=== PATIENT | female | born 1940 | race Caucasian/White ===

== ENCOUNTER 2020-12-22 09:44 | Emergency (ER) | payer BC, MEDICARE ==
--- NOTE | 2020-12-22 10:53 | EDM.PDOC ---
ED HPI GENERAL MEDICAL PROBLEM - General Stated Complaint: TROUBLE BREATHING / CHOKING Time Seen by Provider: 12/22/20 10:40 Source of Information: Reports: Patient, Family History Limitations: Reports: No Limitations - History of Present Illness INITIAL COMMENTS - FREE TEXT/NARRATIVE: This 79 yo female patient was brought to the ED by family due to increased shortness of breath. The patient reports her shortness of breath started on December 09, but has gotten much worse today. The patient reports she lives in [place] and flew to [place] arriving on December 09. The patient denies any history of lung disease. The patient has not taken any medications for temporary symptom relief. The patient reports no previous similar episodes. The patient's daughters report that the patient has had increased shortness of breath with exertion. The patient did fall 2 days ago while in the yard, but reports no injuries due to the fall. Duration: Day(s):, Getting Worse Location: Reports: Chest Quality: Reports: Other Severity: Moderate Improves with: Reports: Rest Worsens with: Reports: Movement Associated Symptoms: Reports: Cough, Shortness of Breath - Related Data Allergies Allergy/AdvReac Type Severity Reaction Status Date / Time No Known Allergies Allergy Verified 12/22/20 10:33 Home Meds: Home Meds Multivit-Min/FA/Lutein/Zeaxant [Macular Vitamin Tablet] 1 each PO DAILY 12/22/20 [History] Simvastatin [Zocor] 20 mg PO DAILY 12/22/20 [History] lisinopriL [Lisinopril] 20 mg PO DAILY 12/22/20 [History] ED ROS GENERAL - Review of Systems Review Of Systems: Comprehensive ROS is negative, except as noted in HPI. ED EXAM, GENERAL - Physical Exam Exam: See Below Exam Limited By: No Limitations General Appearance: Alert, WD/WN, Moderate Distress, Thin Eye Exam: Bilateral Eye: EOMI, Normal Inspection, PERRL Ears: Normal External Exam, Normal Canal, Hearing Grossly Normal, Normal TMs Nose: Normal Inspection, Normal Mucosa, No Blood Throat/Mouth: Normal Inspection, Normal Lips, Normal Teeth, Normal Gums, Normal Oropharynx, Normal Voice, No Airway Compromise Head: Atraumatic, Normocephalic Neck: Normal Inspection, Supple, Non-Tender, Full Range of Motion Respiratory/Chest: Decreased Breath Sounds (bilateral lower lobes), Rhonchi Cardiovascular: Tachycardia GI/Abdominal: Normal Bowel Sounds, Soft, Non-Tender, No Organomegaly, No D istention, No Abnormal Bruit, No Mass (Female) Exam: Deferred Rectal (Female) Exam: Deferred Back Exam: Normal Inspection, Full Range of Motion, NT Extremities: Normal Inspection, Normal Range of Motion, Non-Tender, Normal Capillary Refill Neurological: Alert, Oriented, CN II-XII Intact, Normal Cognition, Normal Gait, Normal Reflexes, No Motor/Sensory Deficits Psychiatric: Normal Affect, Normal Mood Skin Exam: Warm, Dry, Intact, Normal Color, No Rash Lymphatic: No Adenopathy #1 Interpretation EKG Date: 12/22/20 Time: 10:19 Rhythm: Other (Atrial fibrillation with RVR) [place]: Normal P-Wave: Present QRS: Normal ST-T: Normal QT: Normal Comparison: NA - No Prior EKG Course - Vital Signs Last Recorded V/S: Last Vital Signs Temp 97.2 F 12/22/20 10:17 Pulse 102 H 12/22/20 10:17 Resp 28 H 12/22/20 10:17 BP 168/103 H 12/22/20 10:17 Pulse Ox 91 L 12/22/20 10:17 - Orders/Labs/Meds Orders: Active Orders 24 hr Category Date Time Status EKG Documentation Completion [RC] STAT Care 12/22/20 10:29 Active Diltiazem 125 MG in NS @ 5 MG/HR(100ml) Med 12/22/20 11:30 Ordered Diltiazem 125 mg Sodium Chloride 0.9% [Normal Saline] 100 ml IV TITRATE Medication Orders Diltiazem HCl 125 mg/ Sodium (Chloride) 125 mls @ 5 mls/hr IV TITRATE ROSANGELA Last Admin: 12/22/20 11:48 Dose: 5 mg/hr, 5 mls/hr Documented by: SEAN Labs: Laboratory Tests 12/22/20 12/22/20 12/22/20 Range/Units 10:20 10:24 10:24 WBC 11.8 H (5.0-10.0) 10^3/uL RBC 4.50 (4.2-5.4) 10^6/uL Hgb 14.4 (12.0-16.0) g/dL Hct 43.9 (37.0-47.0) % MCV 97.6 (80-100) fL MCH 32.0 (27.0-34.0) pg MCHC 32.8 L (33.0-35.0) g/dL Plt Count 265 (150-450) 10^3/uL Neut % (Auto) 88.0 H (42.2-75.2) % Lymph % (Auto) 3.9 L (20.5-50.1) % [place] % (Auto) 7.9 (2-8) % Eos % (Auto) 0.0 L (1.0-3.0) % Baso % (Auto) 0.2 (0.0-1.0) % D-Dimer, Quantitative 2210 H (0-400) ng/mL Sodium (136-145) mmol/L Potassium (3.5-5.1) mmol/L Chloride (98-107) mmol/L Carbon Dioxide (21-32) mmol/L Anion Gap (7-13) mEq/L BUN (7-18) mg/dL Creatinine (0.55-1.02) mg/dL Est Cr Clr Drug Dosing mL/min Estimated GFR (MDRD) BUN/Creatinine Ratio (No establ ref range) Glucose (70-99) mg/dL Calcium (8.5-10.1) mg/dL Total Bilirubin (0.2-1.0) mg/dL AST (15-37) U/L ALT (14-59) U/L Alkaline Phosphatase (46-116) U/L Troponin I High Sens (<=51) pg/mL B-Natriuretic Peptide (0-100) pg/ml Total Protein (6.4-8.2) g/dL Albumin (3.4-5.0) g/dL Globulin Albumin/Globulin Ratio Influenza Type A RNA Negative (NEGATIVE) Influenza Type B RNA Negative (NEGATIVE) SARS-CoV-2 RNA (LEDA) Negative (NEGATIVE) 12/22/20 Range/Units 10:24 WBC (5.0-10.0) 10^3/uL RBC (4.2-5.4) 10^6/uL Hgb (12.0-16.0) g/dL Hct (37.0-47.0) % MCV (80-100) fL MCH (27.0-34.0) pg MCHC (33.0-35.0) g/dL Plt Count (150-450) 10^3/uL Neut % (Auto) (42.2-75.2) % Lymph % (Auto) (20.5-50.1) % [place] % (Auto) (2-8) % Eos % (Auto) (1.0-3.0) % Baso % (Auto) (0.0-1.0) % D-Dimer, Quantitative (0-400) ng/mL Sodium 134 L (136-145) mmol/L Potassium 4.5 (3.5-5.1) mmol/L Chloride 95 L (98-107) mmol/L Carbon Dioxide 21 (21-32) mmol/L Anion Gap 22.5 H (7-13) mEq/L BUN 29 H (7-18) mg/dL Creatinine 1.38 H (0.55-1.02) mg/dL Est Cr Clr Drug Dosing 25.29 mL/min Estimated GFR (MDRD) 37 BUN/Creatinine Ratio 21.0 (No establ ref range) Glucose 105 H (70-99) mg/dL Calcium 10.0 (8.5-10.1) mg/dL Total Bilirubin 4.0 H (0.2-1.0) mg/dL AST 534 H (15-37) U/L ALT 290 H (14-59) U/L Alkaline Phosphatase 110 (46-116) U/L Troponin I High Sens 24 (<=51) pg/mL B-Natriuretic Peptide 1100 H (0-100) pg/ml Total Protein 7.4 (6.4-8.2) g/dL Albumin 3.5 (3.4-5.0) g/dL Globulin 3.9 Albumin/Globulin Ratio 0.90 Influenza Type A RNA (NEGATIVE) Influenza Type B RNA (NEGATIVE) SARS-CoV-2 RNA (LEDA) (NEGATIVE) Meds: Medications Generic Name Dose Route Start Last Admin Trade Name Freq PRN Reason Stop Dose Admin Diltiazem HCl 125 mg/ Sodium 125 mls @ 5 mls/hr 12/22/20 11:30 12/22/20 11:48 Chloride IV 5 mg/hr TITRATE ROSANGELA 5 mls/hr Administration 5 MG/HR Discontinued Medications Generic Name Dose Route Start Last Admin Trade Name Freq PRN Reason Stop Dose Admin Diltiazem HCl 20 mg 12/22/20 11:01 12/22/20 11:06 Diltiazem 25 Mg/5 Ml Sdv IVPUSH 12/22/20 11:02 20 mg ONETIME ONE Administration Departure - Departure Time of Disposition: 11:59 Disposition: DC/Tfer to Acute Hospital 02 Condition: Serious Clinical Impression: Atrial fibrillation with RVR, Elevated d-dimer Acute renal failure Qualifiers: Acute renal failure type: unspecified Qualified Code(s): N17.9 - Acute kidney failure, unspecified - Discharge Information *PRESCRIPTION DRUG MONITORING PROGRAM REVIEWED*: Not Applicable *COPY OF PRESCRIPTION DRUG MONITORING REPORT IN PATIENT RACHANA: Not Applicable Forms: Interfacility Transfer EMTALA Care Plan Goals: Discussed the patient's history, examination, lab results, x-ray results and treatments with Dr. Naidu. Dr. Naidu accepted the patient for continued evaluation and management as an inpatient at [facility] in [place]. The patient will be transported by [facility]. Sepsis Event Note (ED) - Evaluation Sepsis Screening Result: No Definite Risk - Focused Exam Vital Signs: Vital Signs Temp Pulse Resp BP Pulse Ox 12/22/20 10:17 97.2 F 102 H 28 H 168/103 H 91 L - My Orders Last 24 Hours: My Active Orders 12/22/20 10:29 EKG Documentation Completion [RC] STAT 12/22/20 11:30 Diltiazem 125 MG in NS @ 5 MG/HR(100ml) Diltiazem 125 mg Sodium Chloride 0.9% [Normal Saline] 100 ml IV TITRATE - Assessment/Plan Last 24 Hours: My Active Orders 12/22/20 10:29 EKG Documentation Completion [RC] STAT 12/22/20 11:30 Diltiazem 125 MG in NS @ 5 MG/HR(100ml) Diltiazem 125 mg Sodium Chloride 0.9% [Normal Saline] 100 ml IV TITRATE
[2020-12-22 10:59] LABS: ANION GAP 22.5 mEq/L (7-13)
[2020-12-22] MEDS ORDERED: Diltiazem 25 MG/5 ML SDV IVPUSH ONE (11:01)
[2020-12-22 11:16] LABS: CORONAVIRUS COVID-19 NAA NEGATIVE (NEGATIVE)
--- NOTE | 2020-12-22 11:24 | CR ---
PROCEDURE INFORMATION: Exam: XR Chest Exam date and time: 12/22/2020 10:49 AM Age: 79 years old Clinical indication: Increased edema, shortness of breath TECHNIQUE: Imaging protocol: XR of the chest. Views: 1 view. COMPARISON: No relevant prior studies available. FINDINGS: Lungs: Central bronchial wall thickening and haziness. Suspect at least bilateral basilar compressive atelectasis. Pleural spaces: Small bilateral pleural effusions. Heart/Mediastinum: The cardiac silhouette is not enlarged. The mediastinal contours are normal. Vasculature: The aorta is atherosclerotic. Bones/joints: No acute osseous abnormality. IMPRESSION: 1. Bilateral pleural effusions with suspected bibasilar atelectasis. 2. Central bronchial inflammation/edema.
[2020-12-22] MEDS ORDERED: Diltiazem 125 MG in Sodium Chloride 0.9% 100 ML IV SCH (11:30)
== END 2020-12-22 15:09 ==
LOC: DL.ED 09:44
DX: I48.91 Unspecified atrial fibrillation (principal); N17.9 Acute kidney failure, unspecified; R79.89 Other specified abnormal findings of blood chemistry; Z20.822 Contact with and (suspected) exposure to COVID-19; Z79.899 Other long term (current) drug therapy
CPT/HCPCS: 0240U; 36415; 71045; 80053; 83880; 84484; 85025; 85379; 93005; 96365; 96366; 96376; 99285; J3490; 93010; 99284